=== PATIENT | male | born 1970 | race Caucasian/White ===

== ENCOUNTER → 2016-04-22 | Outpatient (CLI) | payer MEDICAID | END | disposition home or self-care (01) | LOC: RADPV 15:46 | PROVIDERS: ATTEND Internal Medicine Cardiovascular Disease | DX: I70.0 Atherosclerosis of aorta (principal); J98.4 Other disorders of lung | CPT/HCPCS: 71020 ==

== ENCOUNTER 2019-05-17 10:25 | Emergency (ER) | payer MEDICAID, OTHER ==
[~2019-05-17] VITALS: Ht 177.8 cm; Wt 81.8 kg
[2019-05-17 10:27] VITALS: BP 128/85
== END 2019-05-17 11:48 | disposition home or self-care (01) ==
LOC: EDUNIT# 10:25 → EMS 10:26
DX: M54.2 Cervicalgia (principal)